=== PATIENT | female | born 1945 | race Caucasian/White ===

== ENCOUNTER 2018-09-22 14:15 | Outpatient (RCR) | payer BC ==
[~2018-09-22 14:15] MED LIST: AMOXICILLIN/CLA1 TA1 PO; ATENOLOL25 MG PO; BUMEX; IBU-8800 MG PO; LIPITOR PO; ZOFRAN 4MG T4 MG/TAB PO; ZYRTEC10 MG PO
== END 2018-10-01 14:49 | disposition home or self-care (01) ==
LOC: WSPT 14:15
DX: M25.512 Pain in left shoulder (principal); G89.29 Other chronic pain; M54.2 Cervicalgia

== ENCOUNTER 2020-12-04 08:08 | Emergency (ER) | payer BC ==
[~2020-12-04] VITALS: Ht 152.4 cm; Wt 89.5 kg
[2020-12-04 09:29] LABS: BASO # 0.1 (0.0-0.2); BASO % 0.4 % (0.0-2.0); EOS # 0.1 (0.0-0.7); EOS % 1.2 % (0-4.0); GRAN # 7.9 (1.4-6.5); GRAN % 69.7 % (42.2-75.2); HEMATOCRIT 43.4 % (37.0-47.0); HEMOGLOBIN 14.7 g/dl (12.5-16.0); LYMPH # 2.1 (1.2-3.4); LYMPH % 18.6 % (20.0-51.0); MEAN CELL VOLUME 93 fl (80.0-100.0); MEAN CORPUSCULAR HEMOGLOBIN 31 pg (27.0-31.0); MEAN CORPUSCULAR HGB CONC 34 g/dl (33.0-37.0); MEAN PLATELET VOLUME 9.9 fl (7.4-10.4); MONO # 1.1 (0.1-0.6); MONO % 9.6 % (1.7-9.3); PLATELET COUNT 272 K/mm3 (130-400); RED BLOOD COUNT 4.69 M/mm3 (4.10-5.30); REDCELL DISTRIBUTION WIDTH-CV 12.9 % (11.5-14.5)
[2020-12-04 09:40] LABS: ALBUMIN 4.1 gm/dL (3.5-5.0); BILIRUBIN,TOTAL 0.9 mg/dL (0.0-1.0); CALCIUM 8.9 mg/dL (8.4-10.2); CREATININE, serum 0.94 (0.52-1.25); TOTAL PROTEIN 7.6 gm/dL (6.4-8.2)
[2020-12-04 09:42] LABS: C-REACTIVE PROTEIN 2.8 mg/dL (0.0-0.9)
[2020-12-04 09:52] LABS: ERYTHROCYTE SEDIMENTATION RATE 14 mm/hr (0-30)
[2020-12-04] MEDS ORDERED: MITIGARE0.6 MG PO (11:41)
[2020-12-04] MEDS ORDERED: NAPROSYN500 MG PO (11:59)
[2020-12-04 12:00] VITALS: BP 130/71; PULSE 83; TEMP 97.4
== END 2020-12-04 12:00 | disposition home or self-care (01) ==
LOC: COL.ER 08:08
PROVIDERS: Emergency Medicine
DX: M10.072 Idiopathic gout, left ankle and foot (principal); R79.82 Elevated C-reactive protein (CRP); I10 Essential (primary) hypertension; Z88.1 Allergy status to other antibiotic agents; Z79.899 Other long term (current) drug therapy

== ENCOUNTER 2022-11-26 14:37 | Outpatient (RCR) | payer BC ==
[~2022-11-26 14:37] MED LIST changes: +MITIGARE0.6 MG PO; +NAPROSYN500 MG PO
== END 2022-12-26 | disposition home or self-care (01) ==
LOC: WSPT
DX: M54.42 Lumbago with sciatica, left side (principal); R29.898 Other symptoms and signs involving the musculoskeletal system